=== PATIENT | male | born 2000 | race African-American/Black ===

== ENCOUNTER 2020-12-09 02:00 | Emergency (ER) | payer MEDICAID ==
[~2020-12-09] VITALS: Ht 185.4 cm; Wt 68.0 kg
[2020-12-09 02:09] VITALS: BP 110/74
[2020-12-09] MEDS ORDERED: LIDOCAINE HCL 1% 20ML VIAL (Pyxis) INJ INFIL SCH (03:00)
[2020-12-09] MEDS ORDERED: CEFTRIAXONE SODIUM 500 MG/VIAL IM SCH (03:00)
[2020-12-09] MEDS ORDERED: AZITHROMYCIN 500 MG TABLET PO SCH (03:00)
[2020-12-09 03:11] LABS: CLARITY URINE CLOUDY (CLEAR); COLOR URINE YELLOW (YELLOW); KETONES URINE TRACE (NEGATIVE); LEUKOCYTE ESTERASE URINE 2+ (NEGATIVE); NITRITE URINE NEGATIVE (NEGATIVE); OCCULT BLOOD URINE TRACE (NEGATIVE); PROTEIN URINE NEGATIVE (NEGATIVE); SPECIFIC GRAVITY URINE 1.026 (1.005-1.030); UROBILINOGEN URINE 0.2 E.U./dL (0.2-1.0)
== END 2020-12-09 04:37 | disposition home or self-care (01) ==
LOC: ER 03:16
DX: N34.1 Nonspecific urethritis (principal); J45.909 Unspecified asthma, uncomplicated
CPT/HCPCS: 81003; 87086; 96372; 99283; J0696; J3490

== ENCOUNTER 2021-08-10 04:21 | Emergency (ER) | payer MEDICAID ==
[~2021-08-10] VITALS: Ht 185.4 cm; Wt 69.0 kg
[2021-08-10 04:59] VITALS: BP 117/79
[2021-08-15 04:11] LABS: NEISSERIA GONORRHOEAE NAA Negative (Negative)
== END 2021-08-10 07:17 | disposition home or self-care (01) ==
LOC: ER 04:21
DX: Z20.2 Contact with and (suspected) exposure to infections with a predominantly sexual mode of transmission (principal); J45.909 Unspecified asthma, uncomplicated
CPT/HCPCS: 87491; 87591; 99281